=== PATIENT | female | born 1955 | race Caucasian/White ===

== ENCOUNTER → 2019-12-15 | Outpatient (CLI) | payer BC ==
[~2019-12-15] MED LIST: NO HOME MEDICATIONS
== END ==
LOC: MC.RAD 15:43
DX: Z12.31 Encounter for screening mammogram for malignant neoplasm of breast (principal); N63.11 Unspecified lump in the right breast, upper outer quadrant

== ENCOUNTER → 2022-04-23 | Outpatient (CLI) | payer BC | LOC: MC.RAD 08:29 | DX: Z12.31 Encounter for screening mammogram for malignant neoplasm of breast (principal) ==